=== PATIENT | female | born 1965 | race Caucasian/White ===

== ENCOUNTER → 2020-01-08 | Outpatient (CLI) | payer OTHER ==
--- NOTE | 2020-01-08 17:10 | CARDNUC ---
[place] [address] CARDIAC NUCLEAR IMAGING REPORT Name: MARCE WILEY Room: [facility]#: [id number] Admission: 01/08/20 Attend Phys: Ellen Chavez, Discharge: Date of : 63 Date of Service: 01/08/20 1710 Report #: [id number] THIS REPORT FOR: cc: Bailee Zeng Linda J. DO Liston, Michael J. MD [facility] ~ APPROVED REPORT Study performed: 01/08/2020 14:29:20 Exam: Nuclear Stress Test Indication: Abnormal EKG, cardiomyopathy, bradycardia. Patient Location: Out-Patient Stress Tech: Ailyn Arellano Stress Nurse: Madeline Ceron R.N. Ht: 5 ft 3 in Wt: 107 lbs BSA: 1.48 m2 BMI: 18.95 Medical History Medical History: Cardiomyopathy, HTN, Hyperlipidemia, Stroke/TIA, ABN EKG, Bradycardia, Hypothyroidism. Medications: Carvedilol, ASA 325 Mg, Atorvastatin (no refills) Allergies: Sulfa anitbiotics. Cardiac Risk Factors: HTN, Hyperlipidemia, ABN EKG, Cardiomyopathy, Bradycardia. Previous Cardiac Procedures: None Pretest Chest Pain Characteristics: No chest pain Exercise History: Physically active Physical Disabilities: None noted. Meds Held (24 hrs): Carvedilol. Stress Test Details Stress Test: Exercise stress testing was performed using a Preston protocol. HR Resting HR: 51 bpm Max Heart Rate (APMHR): 165 bpm Max HR Achieved: 162 bpm Target HR (85% APMHR): 140 bpm % of APMHR: 98 Recovery HR: 81 bpm BP Resting BP: 142/81 [place] [address] CARDIAC NUCLEAR IMAGING REPORT Name: MARCE WILEY Room: [facility]#: [id number] Admission: 01/08/20 Attend Phys: Ellen Chavez, Discharge: Date of : 63 Date of Service: 01/08/20 1710 Report #: [id number] Max BP: 192/90 mmHg ECG Resting ECG: Sinus Rhythm Stress ECG: Sinus Tachycardia ST Change: None Arrhythmia: None Recovery ECG: Sinus Rhythm Recovery ST Change: None Recovery Arrhythmia: None Clinical Reason for Termination: Completed protocol, Patient Request, Maximal effort. Stress Symptoms: Dyspnea, Leg Fatigue. Exercise duration: 10 min 35 sec Exercise capacity: 12.76 METs Overall Exercise Capacity for Age: Superior The patient exhibited excellent exercise tolerance. There were no cardiac symptoms with standard Preston protocol exercise. Nurse Comments A 54 year old female presented for a Preston Protocol Nuclear Stress Test r/t ABN EKG, Cardiomyopathy, Bradycardia. Treadmill tolerated to stage 4. Recovery unremarkable. Patient was stable and stated she felt good when escorted to Nuclear Medicine for imaging. Stress ECG Conclusion Baseline twelve-lead EKG shows sinus rhythm without significant ST segment or T wave abnormality. EKGs obtained during and post exercise show sinus rhythm and sinus tachycardia with no significant ST segment or T wave changes compared to baseline. There were no stress-induced arrhythmias. NM EXAM: Myocardial Perfusion REST/STRESS Study Quality Study: Fair Artifact: Moderate Breast artifact Study Data At rest, the left ventricular ejection fraction was 73%.. Post stress, the left ventricular ejection was 63%.. TID = 0.96[place] [address] CARDIAC NUCLEAR IMAGING REPORT Name: MARCE WILEY Room: [facility]#: [id number] Admission: 01/08/20 Attend Phys: Ellen Chavez, Discharge: Date of : 63 Date of Service: 01/08/20 1710 Report #: [id number] Perfusion images show a moderate sized mild to moderate intensity defect in the mid to distal anterior wall that is more pronounced on resting and stress images. Wall motion in this region is normal on gated studies. The raw data show significant artifact from breast implants. This does not appear to represent infarct or ischemia. No other significant defects are identified. Wall Motion Normal left ventricular wall motion. Nuclear Conclusion ECG Findings: negative for ischemia Clinical Findings: negative for ischemia Nuclear Findings: negative for ischemia Exercise Capacity: normal Left Ventricular Function: normal Perfusion study show a fixed defect in the mid to distal anterior wall that appears to be the result of attenuation artifact from breast implants. There were no other fixed or reversible defects identified. Global LV systolic function is normal without wall motion abnormality. This is not a high risk study. <Conclusion> Baseline twelve-lead EKG shows sinus rhythm without significant ST segment or T wave abnormality. EKGs obtained during and post exercise show sinus rhythm and sinus tachycardia with no significant ST segment or T wave changes compared to baseline. There were no stress-induced arrhythmias. <ELECTRONICALLY SIGNED> By: Carlito Dodson MD, FACC 01/08/201709 09 09 Carlito Dodson MD, FACC /INF
== END ==
LOC: M.NUC 12-11 11:09
PROVIDERS: ATTEND Internal Medicine
DX: R94.31 Abnormal electrocardiogram [ECG] [EKG] (principal); I25.5 Ischemic cardiomyopathy

== ENCOUNTER → 2020-02-25 | Outpatient (CLI) | payer OTHER ==
[2020-02-25 09:08] LABS: CREATININE 0.8 mg/dL (0.6-1.3)
== END ==
LOC: M.MRI 08:30
PROVIDERS: ATTEND Psychiatry & Neurology Neuromuscular Medicine
DX: G31.9 Degenerative disease of nervous system, unspecified (principal); G93.89 Other specified disorders of brain; I25.5 Ischemic cardiomyopathy; Z86.73 Personal history of transient ischemic attack (TIA), and cerebral infarction without residual deficits

== ENCOUNTER → 2020-03-11 | Outpatient (CLI) | payer OTHER ==
--- NOTE | 2020-03-11 14:26 | 2DMMODE ---
[place] [address] 2 D/M-MODE ECHOCARDIOGRAM Name: MARCE WILEY Room: [facility]#: [id number] Admission: 03/11/20 Attend Phys: Ellen Chavez, Discharge: Date of : 63 Date of Service: 03/11/20 1426 Report #: [id number] THIS REPORT FOR: cc: Bailee Zeng Linda J. DO Liston, Michael J. MD [facility] ~ APPROVED REPORT Study performed: 03/11/2020 12:59:07 EXAM: Comprehensive 2D, Doppler, and color-flow Echocardiogram / Bubble Study Patient Location: Out-Patient BSA: 1.52 HR: 50 bpm BP: 126/80 mmHg Other Information Study Quality: Good Indications CVA/TIA 2D Dimensions IVSd: 10.37 (7-11mm) LVOT Diam: 20.64 (18-24mm) LVDd: 41.74 mm PWd: 9.61 (7-11mm) Ascending Ao: 25.40 (22-36mm) LVDs: 27.07 (25-40mm) Aortic Root: 23.39 mm Volumes Left Atrial Volume (Systole) LA ESV Index: 20.20 mL/m2 Aortic Valve AoV Peak Jas.: 1.39 m/s AO Peak Gr.: 7.77 mmHg LVOT Max P.88 mmHg AO Mean Gr.: 4.46 mmHg LVOT Mean P.88 mmHg LVOT Max V: 1.10 m/s AO V2 VTI: 33.77 cm LVOT Mean V: 0.61 m/s NILAM (VTI): 2.22 cm2 LVOT V1 VTI: 22.43 cm AI [place]: 1.36 m/s2 AI PHT: 557.20 [place] [address] 2 D/M-MODE ECHOCARDIOGRAM Name: MARCE WILEY Room: [facility]#: [id number] Admission: 03/11/20 Attend Phys: Ellen Chavez, Discharge: Date of : 63 Date of Service: 03/11/20 1426 Report #: [id number] Mitral Valve E/A Ratio: 1.53 MV Decel. Time: 155.40 ms MV E Max Jas.: 0.88 m/s MV PHT: 45.06 ms MVA (PHT): 4.88 cm2 TDI E/Lateral E': 6.29 E/Medial E': 8.00 Medial E' Jas.: 0.11 m/s Lateral E' Jas.: 0.14 m/s Pulmonary Valve PV Peak Jas.: 0.78 m/s PV Peak Gr.: 2.45 mmHg Tricuspid Valve RAP Estimate: 5.00 mmHg TR Peak Gr.: 17.68 mmHg RVSP: 22.68 mmHg PA Pressure: 22.68 mmHg Left Ventricle The left ventricle is normal size. There is normal LV segmental wall motion. There is normal left ventricular wall thickness. Left ventricular systolic function is normal. LVEF is 55-60%. The left ventricular diastolic function is normal. Right Ventricle The right ventricle is normal size. The right ventricular systolic function is normal. Atria The left atrium size is normal. Injection of bubbles documented no interatrial shunt. The right atrium size is normal. Aortic Valve The aortic valve is normal in structure. Mild aortic regurgitation. There is no aortic valvular stenosis. Mitral Valve The mitral valve is normal in structure. Trace mitral regurgitation. No evidence of mitral valve stenosis. Tricuspid Valve The tricuspid valve is normal in structure. Mild [place]icus[place] [address] 2 D/M-MODE ECHOCARDIOGRAM Name: MARCE WILEY Room: [facility]#: [id number] Admission: 03/11/20 Attend Phys: Ellen Chavez, Discharge: Date of : 63 Date of Service: 03/11/20 1426 Report #: [id number] Pulmonic Valve The pulmonary valve is normal in structure. There is no pulmonic valvular regurgitation. Great Vessels The aortic root is normal in size. IVC is normal in size and collapses >50% with inspiration. Pericardium There is no pericardial effusion. <Conclusion> The left ventricle is normal size. There is normal left ventricular wall thickness. Left ventricular systolic function is normal. LVEF is 55-60%. The left ventricular diastolic function is normal. Injection of bubbles documented no interatrial shunt. Trace mitral regurgitation. Mild tricuspid regurgitation. <ELECTRONICALLY SIGNED> By: Carlito Dodson MD, FACC 03/11/20 1426 1426 1426 Carlito Dodson MD, FACC /INF
== END ==
LOC: M.CRD 13:00
PROVIDERS: ATTEND Internal Medicine
DX: I08.2 Rheumatic disorders of both aortic and tricuspid valves (principal)

== ENCOUNTER → 2020-03-31 | Outpatient (CLI) | payer OTHER | LOC: M.ULTRA 13:21 | PROVIDERS: ATTEND Family Medicine | DX: M79.89 Other specified soft tissue disorders (principal); Z86.73 Personal history of transient ischemic attack (TIA), and cerebral infarction without residual deficits ==

== ENCOUNTER → 2021-02-02 | Outpatient (CLI) | payer OTHER | LOC: M.CT 12:51 | PROVIDERS: ATTEND Family Medicine | DX: Z13.6 Encounter for screening for cardiovascular disorders (principal); I25.10 Atherosclerotic heart disease of native coronary artery without angina pectoris ==

== ENCOUNTER → 2021-05-29 | Outpatient (CLI) | payer OTHER ==
[2021-05-29 13:37] LABS: CREATININE 0.8 mg/dL (0.6-1.3)
== END ==
LOC: M.LAB 12:47 → M.CT 14:00
PROVIDERS: ATTEND Family Medicine
DX: H70.13 Chronic mastoiditis, bilateral (principal); M47.812 Spondylosis without myelopathy or radiculopathy, cervical region; M50.323 Other cervical disc degeneration at C6-C7 level; H94 Other disorders of ear in diseases classified elsewhere